=== PATIENT | male | born 1940 | race Two or more races ===

== ENCOUNTER 2023-11-04 12:44 | Inpatient (IN) | payer OTHER ==
[2023-11-04] MEDS ORDERED: LACTATED RINGERS SOLUTION 1000 ML INFUS.BAG IV ONE (14:00)
[2023-11-04 15:33] LABS: BASO % 0.2 % (0-2.0); HEMATOCRIT 45.9 % (35.4-49); HEMOGLOBIN 15.8 GM/dL (11.7-16.9); LYMPH % 2.9 % (8-40); MCH 30.1 pg (25.7-33.7); MCHC 34.5 g/dl (32.0-35.9); MEAN CELL VOLUME 87.2 fl (80-96); MEAN PLT VOLUME 8.2 fl (7.5-11.1); MONO % 8.2 % (3.8-10.2); NEUT % 88.7 % (42.8-82.8); PLATELET COUNT 155 10^3/uL (134-434); RBC 5.27 M/mm3 (4.00-5.60); RDW 15.2 % (11.9-15.9); WHITE BLOOD COUNT 19.8 K/mm3 (4.0-10.0)
[2023-11-04 15:35] LABS: VENOUS BASE EXCESS 3.1 mmol/L (-2-2); VENOUS O2 SATURATION 71.2 % (70-80); VENOUS PCO2 37.1 mmHg (38-52); VENOUS PH 7.473 (7.310-7.410)
[2023-11-04 15:39] LABS: INR 1.19 (0.83-1.09); PROTHROMBIN TIME (PATIENT) 13.8 SEC (9.7-13.0)
[2023-11-04 15:41] LABS: ACTIVATED PTT 29.5 SECONDS (25.2-36.5)
[2023-11-04 15:58] LABS: POTASSIUM 3.8 mmol/L (3.5-5.1)
[2023-11-04 16:00] LABS: CALCIUM 13.4 mg/dL (8.5-10.1)
[2023-11-04 16:01] LABS: ALBUMIN 3.2 g/dl (3.4-5.0); BLOOD UREA NITROGEN 35.6 mg/dL (7-18); MAGNESIUM 1.7 mg/dL (1.8-2.4)
[2023-11-04 16:04] LABS: CREATININE 0.7 mg/dL (0.55-1.3)
[2023-11-04 16:06] LABS: BILIRUBIN,TOTAL 2.2 mg/dL (0.2-1); PHOSPHOROUS 2.7 mg/dL (2.5-4.9); TOT PROT 6.8 g/dl (6.4-8.2)
[2023-11-04 16:09] LABS: N-TERMINAL BNP 1847.9 pg/ml (5-450)
[2023-11-04 16:33] LABS: LACTIC ACID 2.9 mmol/L (0.4-2.0)
[2023-11-04] MEDS ORDERED: POTASSIUM CHLORIDE 10 MEQ in SODIUM CHLORIDE 0.45% 1,000 ML IVPB SCH (17:45)
[2023-11-04] MEDS ORDERED: POTASSIUM CHLORIDE 10 MEQ in SODIUM CHLORIDE 1,000 ML IVPB SCH (17:45)
[2023-11-04] MEDS ORDERED: CEFTRIAXONE 1 GM/50 ML BAG ONE (18:28)
[2023-11-04] MEDS ORDERED: AZITHROMYCIN IVPB 500 MG/250 ML BAG IVPB ONE (18:29)
[2023-11-04] MEDS: CEFTRIAXONE 1,000 MG in DEXTROSE 5%-WATER - 50 ML IVPB ONE (19:36)
[2023-11-04] MEDS: MAGNESIUM SULFATE IN WATER 2 GM/50 ML IVPB IVPB ONE (19:37)
[2023-11-04] MEDS: AZITHROMYCIN IVPB 500 MG in DEXTROSE 5%-WATER - 250 ML IVPB ONE (19:37)
[2023-11-04] MEDS: POTASSIUM CHLORIDE 10 MEQ in SODIUM CHLORIDE 1,000 ML IVPB SCH (20:45)
[2023-11-04] MEDS ORDERED: ATORVASTATIN CA 40 MG TABLET (FP) ONE (22:14)
[2023-11-04] MEDS ORDERED: APIXABAN 5 MG TABLET ONE (22:14)
[2023-11-04] MEDS: ATORVASTATIN CA 40 MG TABLET (FP) PO SCH (22:18)
[2023-11-04] MEDS: APIXABAN 5 MG TABLET PO SCH (22:18)
[2023-11-04] MEDS: ENOXAPARIN NA (PORCINE) 80 MG/0.8 ML DISP.SYRIN SQ SCH (23:48)
[2023-11-05 00:21] LABS: LACTIC ACID 3.3 mmol/L (0.4-2.0)
[2023-11-05 00:50] LABS: PH,URINE 5.5 (5.0-8.0); URINE APPEARANCE CLEAR; URINE BILIRUBIN NEGATIVE (NEGATIVE); URINE COLOR YELLOW; URINE GLUCOSE (UA) NEGATIVE (NEGATIVE); URINE KETONE TRACE (NEGATIVE); URINE LEUK ESTERASE NEGATIVE (NEGATIVE); URINE NITRITE NEGATIVE (NEGATIVE); URINE PROTEIN TRACE (NEGATIVE)
[2023-11-05 07:31] LABS: BASO % 0.2 % (0-2.0); EOS % 0.1 % (0-4.5); HEMATOCRIT 47.4 % (35.4-49); HEMOGLOBIN 15.8 GM/dL (11.7-16.9); LYMPH % 4.2 % (8-40); MCH 29.7 pg (25.7-33.7); MCHC 33.4 g/dl (32.0-35.9); MEAN CELL VOLUME 88.9 fl (80-96); MEAN PLT VOLUME 8.7 fl (7.5-11.1); MONO % 8.5 % (3.8-10.2); PLATELET COUNT 143 10^3/uL (134-434); RBC 5.33 M/mm3 (4.00-5.60); RDW 15.6 % (11.9-15.9); WHITE BLOOD COUNT 16.4 K/mm3 (4.0-10.0)
[2023-11-05 07:54] LABS: POTASSIUM 3.8 mmol/L (3.5-5.1)
[2023-11-05 08:00] LABS: ALBUMIN 2.9 g/dl (3.4-5.0); BLOOD UREA NITROGEN 32.1 mg/dL (7-18); CALCIUM 12.5 mg/dL (8.5-10.1)
[2023-11-05 08:03] LABS: CREATININE 0.5 mg/dL (0.55-1.3)
[2023-11-05 08:04] LABS: BILIRUBIN,TOTAL 1.6 mg/dL (0.2-1); TOT PROT 6.4 g/dl (6.4-8.2)
[2023-11-05 08:10] LABS: PHOSPHOROUS 2.5 mg/dL (2.5-4.9)
[2023-11-05] MEDS: CEFTRIAXONE 1 GM in DEXTROSE 5%-WATER - 50 ML IVPB SCH (09:54)
[2023-11-05] MEDS: AZITHROMYCIN IVPB 500 MG/250 ML BAG IVPB SCH (10:46)
[2023-11-05 11:34] LABS: LACTIC ACID 2.8 mmol/L (0.4-2.0)
[2023-11-05 14:58] VITALS: BMI 23.8
[2023-11-05] MEDS: ACETAMINOPHEN INJECTION 100 ML IVPB PRN (16:54)
[2023-11-05] MEDS: SODIUM CHLORIDE 500 ML IV STA (17:04)
[2023-11-05] MEDS: AMINO ACIDS/PROTEIN HYDROLYS 30 ML LIQUID.PKT PO SCH (17:06)
[2023-11-05] MEDS: SODIUM CHLORIDE 1,000 ML IV SCH (18:01)
[2023-11-06 07:41] LABS: BASO % 0.2 % (0-2.0); EOS % 0.2 % (0-4.5); HEMATOCRIT 44.5 % (35.4-49); HEMOGLOBIN 14.8 GM/dL (11.7-16.9); LYMPH % 4.8 % (8-40); MCH 29.5 pg (25.7-33.7); MCHC 33.2 g/dl (32.0-35.9); MEAN CELL VOLUME 88.8 fl (80-96); MEAN PLT VOLUME 8.7 fl (7.5-11.1); MONO % 7.9 % (3.8-10.2); NEUT % 86.9 % (42.8-82.8); PLATELET COUNT 146 10^3/uL (134-434); RBC 5.01 M/mm3 (4.00-5.60); RDW 15.6 % (11.9-15.9); WHITE BLOOD COUNT 14.9 K/mm3 (4.0-10.0)
[2023-11-06 07:52] LABS: POTASSIUM 3.3 mmol/L (3.5-5.1)
[2023-11-06 07:56] LABS: ALBUMIN 2.7 g/dl (3.4-5.0); CALCIUM 12.3 mg/dL (8.5-10.1)
[2023-11-06 08:00] LABS: BILIRUBIN,TOTAL 1.1 mg/dL (0.2-1); TOT PROT 5.8 g/dl (6.4-8.2)
[2023-11-06 08:03] LABS: BLOOD UREA NITROGEN 31.6 mg/dL (7-18); CREATININE 0.5 mg/dL (0.55-1.3)
[2023-11-06] MEDS: MULTIVITAMINS (DAILY MVI) TABLET (FP) PO SCH (10:05)
[2023-11-06] MEDS: ASCORBIC ACID 250 MG TABLET (FP) PO SCH (10:05)
[2023-11-06] MEDS: ZINC SULFATE 220 MG CAPSULE (FP) PO SCH (10:05)
[2023-11-06] MEDS: POTASSIUM CHLORIDE ORAL LIQUID 20 MEQ/15 ML PO ONE (13:36)
[2023-11-06] MEDS: KCL 10 MEQ IVPB 10 MEQ/100 ML INFUS.BAG IVPB SCH ×2 (15:11→22:19)
[2023-11-06] MEDS: ACETAMINOPHEN 1000 MG/100 ML BAG IVPB ONE (15:13)
[2023-11-06] MEDS: FUROSEMIDE 40 MG/4 ML INJECTABLE VIAL IVPUSH ONE (15:20)
[2023-11-07 08:20] LABS: POTASSIUM 4.2 mmol/L (3.5-5.1)
[2023-11-07 08:23] LABS: ALBUMIN 2.6 g/dl (3.4-5.0); CALCIUM 12.2 mg/dL (8.5-10.1)
[2023-11-07 08:24] LABS: BLOOD UREA NITROGEN 37.7 mg/dL (7-18)
[2023-11-07 08:26] LABS: CREATININE 0.6 mg/dL (0.55-1.3)
[2023-11-07 08:28] LABS: BILIRUBIN,TOTAL 0.9 mg/dL (0.2-1); TOT PROT 5.8 g/dl (6.4-8.2)
[2023-11-07] MEDS: SODIUM CHLORIDE 1,000 ML IV SCH (14:28)
[2023-11-07] MEDS: ZOLEDRONIC ACID 4 MG in SODIUM CHLORIDE 100 ML IVPB ONE (15:03)
[2023-11-08 07:17] LABS: BASO % 0.2 % (0-2.0); EOS % 0.6 % (0-4.5); HEMATOCRIT 42.8 % (35.4-49); HEMOGLOBIN 14.6 GM/dL (11.7-16.9); LYMPH % 5.5 % (8-40); MCH 30.1 pg (25.7-33.7); MEAN CELL VOLUME 88.6 fl (80-96); MEAN PLT VOLUME 8.9 fl (7.5-11.1); MONO % 8.4 % (3.8-10.2); NEUT % 85.3 % (42.8-82.8); PLATELET COUNT 145 10^3/uL (134-434); RBC 4.84 M/mm3 (4.00-5.60); RDW 16.2 % (11.9-15.9); WHITE BLOOD COUNT 13.1 K/mm3 (4.0-10.0)
[2023-11-08 07:37] LABS: POTASSIUM 4.4 mmol/L (3.5-5.1)
[2023-11-08 07:44] LABS: CALCIUM 11.5 mg/dL (8.5-10.1)
[2023-11-08 07:45] LABS: ALBUMIN 2.5 g/dl (3.4-5.0); BLOOD UREA NITROGEN 30.2 mg/dL (7-18)
[2023-11-08 07:48] LABS: CREATININE 0.4 mg/dL (0.55-1.3)
[2023-11-08 07:49] LABS: BILIRUBIN,TOTAL 0.8 mg/dL (0.2-1); TOT PROT 5.7 g/dl (6.4-8.2)
[2023-11-08] MEDS: DEXAMETHASONE SOD PHOSPHATE 10 MG/1 ML VIAL IVPUSH ONE (17:03)
[2023-11-08] MEDS: DEXAMETHASONE 4 MG TABLET (FP) PO SCH (18:03)
[2023-11-08] MEDS ORDERED: DEXAMETHASONE SOD PHOSPHATE 10 MG/1 ML VIAL IVPB SCH (18:15)
[2023-11-09] MEDS: DEXAMETHASONE SOD PHOSPHATE 10 MG/1 ML VIAL IVPB SCH (01:04)
[2023-11-09 11:30] LABS: POTASSIUM 4.6 mmol/L (3.5-5.1)
[2023-11-09 11:32] LABS: BLOOD UREA NITROGEN 28.8 mg/dL (7-18); CALCIUM 10.2 mg/dL (8.5-10.1)
[2023-11-09 11:33] LABS: ALBUMIN 2.6 g/dl (3.4-5.0)
[2023-11-09 11:36] LABS: CREATININE 0.5 mg/dL (0.55-1.3)
[2023-11-09 11:37] LABS: BILIRUBIN,TOTAL 0.7 mg/dL (0.2-1); TOT PROT 5.9 g/dl (6.4-8.2)
[2023-11-09 17:09] LABS: FREE KAPPA,SERUM 47.9 mg/L (3.3-19.4)
[2023-11-10] MEDS: DEXAMETHASONE SOD PHOSPHATE 10 MG/1 ML VIAL IVPB SCH (09:19)
[2023-11-10] MEDS: SODIUM CHLORIDE 1,000 ML IV SCH (13:03)
[2023-11-10] MEDS ORDERED: ATORVASTATIN CA 20 MG TABLET (FP) ONE (22:56)
[2023-11-11 07:51] LABS: POTASSIUM 4.2 mmol/L (3.5-5.1)
[2023-11-11 08:00] LABS: ALBUMIN 2.6 g/dl (3.4-5.0); BLOOD UREA NITROGEN 34.8 mg/dL (7-18)
[2023-11-11 08:02] LABS: CREATININE 0.5 mg/dL (0.55-1.3)
[2023-11-11 08:04] LABS: BILIRUBIN,TOTAL 0.6 mg/dL (0.2-1); TOT PROT 5.8 g/dl (6.4-8.2)
[2023-11-11 08:25] LABS: CALCIUM 8.6 mg/dL (8.5-10.1)
[2023-11-11] MEDS: FUROSEMIDE 40 MG/4 ML INJECTABLE VIAL IVPUSH ONE (13:49)
[2023-11-11] MEDS: HYDROmorphone HCl 2 MG/ML VIAL IVPB PRN (15:54)
[2023-11-12] MEDS: HYDROmorphone HCl 2 MG/ML VIAL IVPB PRN (11:30)
[2023-11-12] MEDS: FUROSEMIDE 40 MG TABLET (FP) PO ONE (12:44)
[2023-11-14] MEDS: diphenhydrAMINE HCL 25 MG CAPSULE (FP) PO PRN (12:56)
[2023-11-15] MEDS ORDERED: FENTANYL PATCH WASTE TD PRN (11:31)
[2023-11-15] MEDS: fentaNYL 25mcg/hr PATCH.TD72 TD SCH (12:23)
[2023-11-15] MEDS: FUROSEMIDE 40 MG TABLET (FP) PO ONE (15:02)
[2023-11-16 07:42] LABS: ALBUMIN 2.8 g/dl (3.4-5.0); BLOOD UREA NITROGEN 32.7 mg/dL (7-18)
[2023-11-16 07:45] LABS: CREATININE 0.6 mg/dL (0.55-1.3)
[2023-11-16 07:47] LABS: BILIRUBIN,TOTAL 0.8 mg/dL (0.2-1); TOT PROT 5.7 g/dl (6.4-8.2)
[2023-11-16 08:54] VITALS: TEMP 97.5
[2023-11-16] MEDS: FUROSEMIDE 40 MG TABLET (FP) PO ONE (14:33)
[2023-11-16] MEDS ORDERED: HYDROmorphone HCL 2 MG TABLET PO PRN (15:27)
[2023-11-16 16:01] VITALS: BP 122/88; PULSE 98; RESP 18
== END 2023-11-16 16:48 | DRG 299 ==
LOC: JER 12:44 → JERBED 16:32 → J4W 11-05 09:35
PROVIDERS: ADMIT Internal Medicine; ATTEND Internal Medicine
DX: I82.403 Acute embolism and thrombosis of unspecified deep veins of lower extremity, bilateral (principal); G93.41 Metabolic encephalopathy; I26.99 Other pulmonary embolism without acute cor pulmonale; J18.9 Pneumonia, unspecified organism; E87.1 Hypo-osmolality and hyponatremia; C79.51 Secondary malignant neoplasm of bone; E87.20 Acidosis, unspecified; L89.152 Pressure ulcer of sacral region, stage 2; E78.5 Hyperlipidemia, unspecified; E86.0 Dehydration; I50.9 Heart failure, unspecified; E83.42 Hypomagnesemia; I48.91 Unspecified atrial fibrillation; E83.52 Hypercalcemia; I11.0 Hypertensive heart disease with heart failure; K76.9 Liver disease, unspecified
CPT/HCPCS: 0241U-QW; 36415; 70450-TC; 71045-TC-FY; 71275-TC; 76536-TC; 76705-TC; 80053; 80061; 81003; 82105; 82140; 82310; 82378; 82550; 82803; 82962; 83036; 83605; 83690; 83735; 83880; 83883; 83970; 84100; 84155; 84165; 84443; 84484; 85025; 85610; 85730; 86850; 86900; 86901; 87040; 87086; 87635; 87899; 93005; 93010; 93306-TC; 93970-TC; 97116-GP; 97163-GP; 99285-25; J0131; J1100; J3489